=== PATIENT | female | born 1995 | race Caucasian/White ===

== ENCOUNTER 2022-10-06 19:03 | Emergency (ER) | payer OTHER, SELFPAY ==
[2022-10-06 19:04] VITALS: BP 129/70; PULSE 96; RESP 20; TEMP 36.7; O2SAT 98
--- NOTE | 2022-10-06 19:07 | ED.ABDPAIN ---
HPI - Abdominal Pain General Chief Complaint: Abdominal Pain Stated Complaint: nausea Source: patient Mode of arrival: ambulatory History of Present Illness HPI narrative: 27-year-old female, , LMP 1 week ago presents to the ER with 15 hour history of -- epigastric pain. The pain is continuous. No exacerbating or relieving factors. -- Nausea with multiple episodes of vomiting. She is unable to keep anything down. -- Diarrhea with multiple loose stools. No blood or mucus. -- Fever with a T-max of 100.1?. No prior episodes of abdominal pain. No prior abdominal surgeries. MD elicited complaint: abdominal pain Onset (ago): hour(s) ( Started 15 hours ago.) Pain Consistency: constant Location: epigastric Severity: mild Quality: aching Radiation: none Migration to: no migration Exacerbating factors: nothing Relieving factors: nothing Associated symptoms: denies other symptoms Related Data Allergies Allergy/AdvReac Type Severity Reaction Status Date / Time No Known Allergies Allergy Verified 10/06/22 19:39 Review of Systems Review of Systems: All systems reviewed & are unremarkable except as noted in HPI and below Constitutional: Constitutional: Reports as per HPI and Reports no additional constitutional complaints Eyes: Eyes: Reports as per HPI and Reports no additional eye complaints ENT: Reports system reviewed and no additional complaints, except as documented and Reports as per HPI Cardiovascular: Cardiovascular: Reports as per HPI and Reports no additional cardiovascular complaints Respiratory: Respiratory: Reports as per HPI and Reports no additional respiratory complaints Gastrointestinal: Gastrointestinal: Reports as per HPI, Reports no additional gastrointestinal complaints, Reports abdominal pain, Reports diarrhea, Reports nausea and Reports vomiting Genitourinary: Genitourinary: Reports no additional female genitourinary complaints Musculoskeletal: Musculoskeletal: Reports no additional musculoskeletal complaints and Reports as per HPI Integumentary/Breasts: Skin/Breast: Reports system reviewed and no additional complaints, except as docu and Reports as per HPI Neurologic: Reports system reviewed and no additional complaints, except as documented and Reports as per HPI Psychiatric: Psychiatric: Reports no additional psychiatric complaints and Reports as per HPI Endocrine: Endocrine: Reports no additional endocrine complaints and Reports as per HPI Hematologic/Lymphatic: Hematologic/Lymphatic: Reports no additional hematologic/lymphatic complaints and Reports as per HPI Allergic/Immunologic: Allergic/Immunologic: Reports no additional allergic/immunologic complaints and Reports as per HPI Exam Const: General: healthy appearing and no acute distress Nutritional Appearance: well nourished Orientation/consciousness: patient oriented x3 Limitations: no limitations HENMT: Head: normal to inspection Ears: external ears normal Face/Nose/Sinus: Normal external nose present Face and sinus: normal facial exam Mouth: Yes Normal oral and palatal mucosa present Throat: posterior oropharynx normal Eyes: Conjunctivae: conjunctivae normal Pupils: Equal, round and reactive pupils present EOM: EOMs intact bilaterally Direct Ophthalmoscopy: no photophobia Neck: Neck: normal visual inspection, no lymphadenopathy and no meningeal signs Chest: Chest palpation & inspection: normal inspection of the chest Resp: Effort & Inspection: normal respiratory effort Auscultation: clear to auscultation bilaterally Cardio: Rate: regular rate Rhythm: regular rhythm GI: GI Palp: Yes Soft to palpation Auscultation: normal bowel sounds : General: Yes no CVA tenderness Back/Spine/Pelvis: Back: no CVA tenderness Skin: General skin exam: normal color Rashes: no rashes Wounds: no wounds Neuro: General: patient oriented x3, moves all extremities, no meningeal signs, no focal motor deficits and CN's II-XI intac
[2022-10-06 19:27] LABS: Basophils Absolute Auto 0.01 K/mm3 (0.00-0.10); Basophils Percent Auto 0.1 % (0.0-1.0); Eosinophils Absolute Auto 0.01 K/mm3 (0.02-0.50); Eosinophils Percent Auto 0.1 % (1.0-6.0); Hematocrit 39.2 % (35.0-49.0); Hemoglobin 13.3 g/dL (12.0-15.0); Immature Granulocyte Absolute 0.03 K/mm3 (0.00-0.00); Immature Granulocyte Percent A 0.3 % (0.0-0.0); Lymphocytes Absolute Auto 0.74 K/mm3 (1.10-4.50); Lymphocytes Percent Auto 7.1 % (18.0-42.0); Mean Corpuscular HGB Conc 33.9 g/dL (32.0-36.0); Mean Corpuscular Volume 85.6 fL (78.0-102.0); Mean Platelet Volume 8.7 fl (9.2-11.8); Monocytes Absolute Auto 0.27 K/mm3 (0.10-0.90); Monocytes Percent Auto 2.6 % (2.0-11.0); Neutrophils Absolute Auto 9.3 K/mm3 (1.7-7.2); Neutrophils Percent Auto 89.8 % (50.0-70.0); Platelet Count Result 263 K/mm3 (150-420); Red Blood Count 4.58 M/mm3 (4.20-5.40); Red Cell Distribution Width 14.1 % (11.6-14.4); White Blood Count 10.4 K/mm3 (4.8-10.8)
[2022-10-06 19:33] LABS: Appearance Urine Slightly Cloudy (Clear); Bilirubin Urine 1+ (Negative); Blood Urine 3+ (Negative); Glucose Urine UA Negative (Negative); Ketones Urine Negative (Negative); Leukocyte Esterase Ur Trace LEU/UL (Negative); Nitrate Urine Negative (Negative); Protein Urine 2+ (Negative); Specific Grav Ur >= 1.030 (1.010-1.020); Urobilinogen Urine 0.2 mg/dL (0.2-1.0)
[2022-10-06] MEDS: ONDANSETRON INJ 4 MG/2 ML VIAL IV PUSH (19:35)
[2022-10-06] MEDS: LACTATED RINGERS 1,000 ML 999 ML IV CONT (19:35)
[2022-10-06 19:41] LABS: Partial Thromboplastin Time 26.7 SEC (23.90-30.70)
[2022-10-06 19:42] LABS: Add Urine Microscopic? YES; Bacteria Urine Trace /hpf; Color Urine Dark Yellow (Yellow); Mucus Urine Rare /lpf; Squamous Epithelial Cell Urine Few /hpf (Few); WBC Urine 0-3 /hpf (0-3)
[2022-10-06 19:47] LABS: Alanine Aminotransferase 12 U/L (14-59); Albumin Level 3.7 g/dL (3.4-5.0); Alkaline Phosphatase 72 U/L (46-116); Anion Gap 11 mmol/L (8-16); Aspartate Amino Transferase < 10 U/L (15-37); Bilirubin,Total 0.6 mg/dL (0.00-1.00); Blood Urea Nitrogen 11 mg/dL (7-18); Calcium 8.2 mg/dL (8.5-10.1); Carbon Dioxide 25 mmol/L (21-32); Chloride 100 mmol/L (98-108); Estimated CRCL calculation 104 ml/min; Estimated Glomerular Filt Rate > 60; Glucose 135 mg/dL (70-99); Osmolality Calculated 283 mOsm/kg (285-295); Potassium 3.4 mmol/L (3.5-5.1); Sodium 136 mmol/L (136-145); Total Protein 8.2 g/dL (6.4-8.2)
[2022-10-06 19:50] LABS: Pregnancy On Board Control Positive; Urine Pregnancy Test Negative
[2022-10-06 19:50] LABS: Lipase 19 U/L (16-77)
[2022-10-06 19:52] LABS: Lactic Acid Reflex 1.2 mmol/L (0.4-2.0)
[2022-10-06 20:05] LABS: Influenza A QL RT-PCR Negative (Negative); Influenza B QL RT-PCR Negative (Negative); RSV RNA, RT-PCR Negative (Negative); SARS-CoV-2 RNA PCR Negative (Negative)
[2022-10-06] MEDS: ONDANSETRON HCL ODT 4 MG TABLET PO (20:17)
[2022-10-06] MEDS: PANTOPRAZOLE SODIUM IV 40 MG VIAL IV PUSH (20:17)
[2022-10-06 20:28] VITALS: BP 105/68; PULSE 90; RESP 16; TEMP 37.2; O2SAT 100
== END 2022-10-06 20:33 | disposition home or self-care (01) ==
PROVIDERS: Emergency Provider Internal Medicine Critical Care Medicine
DX: K52.9 Noninfective gastroenteritis and colitis, unspecified (principal); E86.0 Dehydration; Z20.822 Contact with and (suspected) exposure to COVID-19
CPT/HCPCS: 36415; 80053; 81001; 81025; 83605; 83690; 85025; 85730; 87637; 96361; 96374; 96375; 99284; A9270; C9113; J2405; J7120

== ENCOUNTER 2024-08-18 11:39 | Emergency (ER) | payer OTHER, SELFPAY ==
--- OUTSIDE RECORDS SUMMARY | 2024-08-18 11:42 | XMS_ITS | Clinical Summary ---
Author Organization [facility] at the [facility] [place] [facility] Address [address] [place] [address] Care Team Providers Care Side Hemmer Name Role Phone No, Physician Primary Care Provider Allergies No known active allergies Medications [id number] -epa-fish oil 400 mcg-35 mg -25 mg-5 mg tablet,chewable Take by mouth Active ibuprofen (ADVIL,MOTRIN) 600 mg tabletIndication s:Cramps Take 1 tablet (600 mg total) by mouth every 6 (six) hours as needed for pain 30 tablet 1 11/05/2021 Active Active Problems Problem Noted Date Diagnosed Date Normal course 11/05/2021 Overview (11/05/2021): 11/04/2021, PPD 1 (kg): S/p TSVD at 40w1d after IOL PNL: B-/I/-/-,NR VSS EBL 300mL. Hgb 9.9 on admission > 9.2 PPD#1, No signs/symptoms of acute blood loss anemia. Tolerating PO. Voiding spontaneously. Pain: Controlled with PO pain medications Fundus firm Breast Feeding Baby Doing well in room with mom Disposition: Continue routine care 11/05/2021, PPD 2 (SK): Rh negative, baby Rh positive - status post RhoGAM yesterday Ambulating, voiding, tolerating regular diet, pain controlled Formula feeding VSS WNL Normal exam Stable for discharge Routine discharge precautions Discharge home with ibuprofen for pain Tobacco abuse 05/05/2021 Marijuana use 05/05/2021 Low grade squamous intraepit h lesion on cytologic smear cervix (lgsil) 05/05/2021 Resolved Problems Problem Noted Date Diagnosed Date Resolved Date Encounter for elective induction of labor 11/03/2021 11/05/2021 Overview (11/05/2021): 11/03/2021 (BD): Estephanie is a 26 y.o. female at 40w0d presenting for elective induction of labor. - Labor: favorable cervix started on pitocin overnight (current rate - 2); AROM @ 07:30 - clear fluid; cervix unchanged [2]- continue to titrate pitocin - GBS: neg - Pain Control: per maternal request, narcotics ok if delivery not anticipated within 4hrs - FWB: presentation confirmation by bedside US; Tracing - continuous EFM; EFW: 7.5# - Labs: CBC, T&S - Diet: CLD, as tolerated - Fluids: place IV, LR maintenance hydration Supervision of normal first , antepartum 05/05/2021 11/05/2021 Overview (11/05/2021): EDC by 14 week ultrasound Labs: B-/I/-/-, Hep C neg - RhoGAM 08/17/2021 GCT: 154 - 3hr passed TDAP: 08/17/2021 GBS: negative Marijuana and tobacco use. Pt is working on quitting UDS: remains positive THC Panorama: low risk Immunizations Immunization Administration Dates Next Due MMR 11/05/2021(Deferred: Contraindic ation) Tdap 08/17/2021 Surgical History Surgery Date Site/Laterality Comments ARM SURGERY Left at age 4 TONSILECTOMY, ADENOIDECTOMY, BILATERAL MYRINGOTOMY AND TUBES as a teenager age 15 Medical History Medical History Date Comments Abnormal Pap smear of cervix Family History Medical History Relation Name Comments Breast cancer Maternal Grandmother Breast cancer Mother's Sister Ovarian cancer Neg Hx Uterine cancer Neg Hx Relation Name Status Comments Father Alive Maternal Grandfather Other at age 40's Maternal Grandmother Mother Alive Mother's Sister Other at age 50's Social History Tobacco Use Types Packs/Day Years Used Date Smoking Tobacco: Every Day Cigarettes Smokeless Tobacco: Never Tobacco Cessation:Ready to Q uit: Yes; Counseling Given: Yes AUDIT-C Answer Date Recorded Q1: How often do you have a drink containing alcohol? Never 11/03/2021 Q2: How many drinks containi ng alcohol do you have on a typical day when you are drinking? Patient does not drink Q3: How often do you have si x or more drinks on one occasion? Never 11/03/2021 [place] Depression Scale Answer Date Recorded [place] Depression Scale Total 3 11/04/2021 The thought of harming myself has occurred to me . Never 11/04/2021 Personal Safety Answer Date Recorded Getting School Help Needed Not on file 06/08 Comments No Sex and Gender Information Value Date Recorded Sex Assigned at Not on file Legal Sex Female 8:09 PM MANUFACTURING FINANCE MANAGER Gender Identity Not on file Sexual Orientation Not on file Obstetrics History Para Term AB IAB SAB Ectopic Multiple Livin g Live Births 1 Date Outcome GA Total Labor Labor/2nd/3rd Weight Sex Type Anes PTL Keke A1 A5 Name Clin Last Filed Vital Signs Vital Sign Reading Time Taken Comments Blood Pressure 115/62 11/05/2021 5:35 AM CDT Pulse 65 11/05/2021 5:35 AM CDT Temperature 36.7 C (98.1 F) 11/05/2021 5:35 AM CDT Respiratory Rate 16 11/05/2021 5:35 AM CDT Oxygen Saturation 98% 11/05/2021 5:35 AM CDT Inhaled Oxygen Concentration - - Weight 79.8 kg (176 lb) 11/03/2021 1:05 AM CDT Height 160 cm (5' 3 ) 11/03/2021 1:05 AM CDT Body Mass Index 31.18 11/03/2021 1:05 AM CDT Plan of Treatment Health Maintenance Due Date Last Done Comments Cervical Cancer Screening 1995 Varicella Vaccines (2 of 2 - 2-dose childhood series) 1999 06/13/1996 Pneumococcal vaccine <65 (1 of 2 - PCV) 2014 Regular Well Visit/Exam 18-64 04/07/2022 04/07/2021 Depression Screening 11/04/2022 11/04/2021 Covid-19 Vaccine (3 season) 2024 11/21/2020, 10/24/2020 Influenza Vaccine (#1) 2024 05/05/2019 DTaP/Tdap/Td Vaccine (7 - Td or Tdap) 08/18/2031 08/17/2021, 12/28/1999, 09/07/1996, Additional history exists Hepatitis B Screening Completed 1995 , 1995, 1995 Hepatitis C Screening Completed 05/05/2021 HPV Vaccines Aged Out No longer eligi ble based on patient's age to complete this topic Procedures Procedure Name Priority Date/Time Associated Diagnosis Comments HEPATITIS C ANTIBODY Routine 05/05/2021 10:19 AM MANUFACTURING FINANCE MANAGER Positive test Missed menses from Last 3 Months or Most Recently Relevant to Health Maintenance Results * Hepatitis C antibody (05/05/2021 10:19 AM MANUFACTURING FINANCE MANAGER) Hep C Ab Nonreactive Nonreactive KEILA SIBLEY Comment: Interpretive Data Nonreactive: Antibodies to HCV not detected. Does NOT exclude the possibility of recent exposure to HCV. Equivocal: Equivocal for HCV antibodies. Supplemental molecular testing will be automatically performed to determine infection status in accordance with current CDC screening recommendations. Reactive: Positive for HCV antibodies. This may represent current or past HCV infection. Supplemental molecular testing will be automatically performed to determine current infection status in accordance with current CDC screening recommendations. Interpretive data was last revised on 2019. Blood 05/05/2021 10:1 9 AM MANUFACTURING FINANCE MANAGER 05/05/2021 12:50 PM MANUFACTURING FINANCE MANAGER Jasmina Salcedo [facility] MICROBIOLOGY - GENE RAL ORDERABLES Final Result KEILA SIBLEY [address] [facility] Department [place] [address] from Last 3 Months or Most Recently Relevant to Health Maintenance Insurance [employer]CIAL [employer] COMMERCIAL [employer]IC Advance Directives For more information, please contact: [phone] * Full Code (Latest Code Status on File) Date Activated Date Inactivated Comments 11/03/2021 4:45 PM 11/05/2021 5:31 PM * Full Code Date Activated Date Inactivated Comments 11/03/2021 1:14 AM 11/03/2021 4:45 PM Full CPR in case of cardiopulmonary arrest Care Teams Side Hemmer Relationship Specialty Start Date End Date No, Physician PCP - General 04/07/21
--- OUTSIDE RECORDS SUMMARY | 2024-08-18 11:42 | XMS_ITS | Clinical Summary ---
Author Organization [facility] Address [address] [place] [address] Phone Care Team Providers Care Quality Improvement Analyst Name Role Phone Unavailable Primary Care Provider Unavailabl e Encounters Date Type Department Care Team Description 08/11/2024 External Device Data STL ABSTRACTION Provider, Abstract 08/10/2024 External Device Data STL ABSTRACTION Provider, Abstract 08/07/2024 External Device Data STL ABSTRACTION Provider, Abstract 07/24/2024 External Device Data STL ABSTRACTION Provider, Abstract 07/10/2024 External Device Data STL ABSTRACTION Provider, Abstract 07/10/2024 External Device Data STL ABSTRACTION Provider, Abstract 07/10/2024 External Device Data STL ABSTRACTION Provider, Abstract 07/09/2024 10:42 AM DATA CONVERSION ANALYST - 07/09/2024 11:59 PM DATA CONVERSION ANALYST Hospital Encounter [facility] [address] [place] [address] [place] NP Discharge Disposition: Home or Self Care from Last 3 Months Social History Tobacco Use Types Packs/Day Years Used Date Smoking Tobacco: Never Assessed Comments Unknown Sex and Gender Information Value Date Recorded Sex Assigned at Not on file Legal Sex Female 1:22 PM CDT Gender Identity Not on file Sexual Orientation Not on file Plan of Treatment Health Maintenance Due Date Last Done Comments HEPATITIS B VACCINES (1 of 3 - 19+ 3-dose series) 2014 CERVICAL CANCER SCREENING 2016 DTAP/TDAP/TD VACCINES (3 - Td or Tdap) 08/18/2031 08/17/2021, 06/06/2021 INFLUENZA VACCINE Completed 04/06/2024 HPV VACCINES Aged Out No longer eligi ble based on patient's age to complete this topic Procedures Procedure Name Priority Date/Time Associated Diagnosis Comments US HEAD NECK TISSUES Routine 07/09/2024 11:14 AM DATA CONVERSION ANALYST Neck mass from Last 3 Months Results * US HEAD NECK TISSUES (07/09/2024 11:14 AM DATA CONVERSION ANALYST) Anatomical Region Laterality Modality Head Ultrasound 07/09/2024 11:1 4 AM DATA CONVERSION ANALYST Impressions 07/09/2024 1:22 PM DATA CONVERSION ANALYST IMPRESSION: 1. Marked enlargement and heterogeneity of the thyroid gland, consistent with goiter. 2.TR3 (mildly suspicious) nodule in the right thyroid. Recommendation: Follow up ultrasound in one year. 3. Hypoechoic nodule inferior to the right thyroid, potentially representing parathyroid adenoma. Correlate clinically. Attention on follow-up. Standard Recommendations: TR1: no FNA required. TR2: no FNA required. TR3: >=1.5 cm follow up at 1, 3 and 5 years. >=2.5 cm FNA. TR4: >=1.0 cm follow up at 1, 2, 3 and 5 years. >=1.5 cm FNA. TR5: >=0.5 cm annual follow up for up to 5 years. >=1.0 cm FNA. DICTATION LOCATION: [address] 07/09/2024 1:22 PM DATA CONVERSION ANALYST EXAMINATION: Thyroid Ultrasound. HISTORY: Neck mass. COMPARISON: None. FINDINGS: The thyroid is markedly enlarged in size. The right thyroid measures 8.8 x 3.0 x 3.2 cm and the left thyroid is 7.0 x 2.6 x 2.4 cm. The isthmus measures 1.1 cm. The thyroid parenchyma is markedly heterogeneous. There appears to be a hypoechoic mass along the inferior aspect of the right thyroid measuring 9 x 7 x 13 mm. No definite pulmonary vasculature is identified. The following nodules are reported by TI-RADS criteria. Nodule: One. Location: Right mid. Size: 1.2 x 0.9 x 1.0 cm. Composition: solid or almost completely solid (2) Echogenicity: hyperechoic (1) Shape: [id number] (0) Margin: smooth (0) Echogenic Foci: none or large comet-tail artifacts (0) TI-RADS category: TR3 (mildly suspicious) Recommendation: Follow up ultrasound in one year Procedure Note Aliyah Castillo MD - 07/09/2024 EXAMINATION: Thyroid Ultrasound. HISTORY: Neck mass. COMPARISON: None. FINDINGS: The thyroid is markedly enlarged in size. The right thyroid measures 8.8 x 3.0 x 3.2 cm and the left thyroid is 7.0 x 2.6 x 2.4 cm. The isthmus measures 1.1 cm. The thyroid parenchyma is markedly heterogeneous. There appears to be a hypoechoic mass along the inferior aspect of the right thyroid measuring 9 x 7 x 13 mm. No definite pulmonary vasculature is identified. The following nodules are reported by TI-RADS criteria. Nodule: One. Location: Right mid. Size: 1.2 x 0.9 x 1.0 cm. Composition: solid or almost completely solid (2) Echogenicity: hyperechoic (1) Shape: [id number] (0) Margin: smooth (0) Echogenic Foci: none or large comet-tail artifacts (0) TI-RADS category: TR3 (mildly suspicious) Recommendation: Follow up ultrasound in one year IMPRESSION: 1. Marked enlargement and heterogeneity of the thyroid gland, consistent with goiter. 2.TR3 (mildly suspicious) nodule in the right thyroid. Recommendation: Follow up ultrasound in one year. 3. Hypoechoic nodule inferior to the right thyroid, potentially representing parathyroid adenoma. Correlate clinically. Attention on follow-up. Standard Recommendations: TR1: no FNA required. TR2: no FNA required. TR3: >=1.5 cm follow up at 1, 3 and 5 years. >=2.5 cm FNA. TR4: >=1.0 cm follow up at 1, 2, 3 and 5 years. >=1.5 cm FNA. TR5: >=0.5 cm annual follow up for up to 5 years. >=1.0 cm FNA. DICTATION LOCATION: [address] us [place] NP US ORDERABLES Final R esult from Last 3 Months Insurance [facility] [employer]
--- OUTSIDE RECORDS SUMMARY | 2024-08-18 11:42 | XMS_ITS | Referral Summary ---
Author Organization [facility] at the [facility] Address [address] [place] [address] Care Team Providers Care Motor Vehicle Escort Driver Name Role Phone No, Physician Primary Care Provider [phone] Allergies No known active allergies Medications [id number] -epa-fish oil 400 mcg-35 mg -25 mg-5 [...] @ 07:30 - clear fluid; cervix unchanged [/2]- continue to titrate pitocin - GBS: neg [...] Due MMR 11/05/2021(Deferred: Contraindic ation) Tdap 08/17/2021 Social History Tobacco Use Types Packs/Day Years [...] more drinks on one occasion? Never 11/03/2021 [place] Depression Scale Answer Date Recorded [place] Depression Scale Total 3 11/04/2021 The thought of harming myself has occurred to me . Never 11/04/2021 Personal Safety Answer Date Recorded Getting School Help Needed Not on file 06/08 Comments No Sex and Gender Information Value Date Recorded Sex Assigned at Not on file Legal Sex Female 8:09 PM PRECINCT CAPTAIN Gender Identity Not on file Sexual Orientation Not on file Last Filed Vital Signs Vital Sign Reading [...] 11/03/2021 1:05 AM CDT Plan of Treatment Not on file Procedures Procedure Name Priority Date/Time Associated Diagnosis Comments HEPATITIS C ANTIBODY Routine 05/05/2021 10:19 AM PRECINCT CAPTAIN Positive test Missed menses from Last 3 Months or Most Recently Relevant to Health Maintenance Results * Hepatitis C antibody (05/05/2021 10:19 AM PRECINCT CAPTAIN) Hep C Ab Nonreactive Nonreactive KEILA SIBLEY [...] on 2019. Blood 05/05/2021 10:1 9 AM PRECINCT CAPTAIN 05/05/2021 12:50 PM PRECINCT CAPTAIN Jasmina Matias CNM LAB MICROBIOLOGY - GENE RAL ORDERABLES Final Result KELIA [facility] [address] [facility] Department [place] [address] from Last 3 Months or Most Recently Relevant to Health Maintenance Insurance [employer] COMMERCIAL [employer]IC Advance Directives For more information, please contact: [phone] * Full Code (Latest Code Status on File) Date Activated Date Inactivated Comments 11/03/2021 4:45 PM 11/05/2021 5:31 PM * Full Code Date Activated Date Inactivated Comments 11/03/2021 1:14 AM 11/03/2021 4:45 PM Full CPR in case of cardiopulmonary arrest Care Teams Motor Vehicle Escort Driver Relationship Specialty Start Date End Date No, Physician PCP - General 04/07/21
--- OUTSIDE RECORDS SUMMARY | 2024-08-18 11:46 | XMS_ITS | Data Portability ---
Author Organization [facility] ELANALisa Mai Address [address] [place] [address] Care Team Providers Care Drive In Waiter/Waitress Name Role Phone SAVANNAH OLIVARES Primary Care Provider Unavailabl e Assessment No assessment recorded. Plan of Treatment Reminders Order Date Submit Date Provider Last Modified By Organization Details Last Modified Time Details Appointments None recorded. Lab thyroperox idase Ab, serum 2024 025 [facility], [address] [place] [address], [facility] [address], [place], [address], 5 14:12:27 TSH + free T4, serum 2024 025 [facility], [address] [place] [address], [facility] [address], [place], [address], 5 14:12:25 TSH + free T4, serum 2023 024 aleisha [facility], [address] [place] [address], [facility] [address], [place], [address], 4 15:21:19 lipid panel, serum 2023 024 [facility]ITE [facility], [address] [place] [address], [facility] [address], [place], [address], 4 08:26:38 CBC w/ auto diff 2023 024 [facility], [address] [place] [address], [facility] [address], [place], [address], 4 08:26:46 TSH, ultra-sens itive, serum 2023 024 [facility], [address], [address], [place], [address], 4 08:26:41 HbA1c (hemoglobi n A1c), blood 2023 024 [facility], [address], [place], [address], 4 08:26:43 BMP, serum or plasma 2023 024 [facility], [address], [place], [address], 4 08:26:39 urinalysis , complete 2023 024 [facility], [address], [place], [address], 4 08:26:44 Referral None recorded. Procedures None recorded. Surgeries None recorded. Imaging US, thyroid 2024 025 [facility], [address], [place], [address], 5 15:29:56 US, hand - R proximal joint middle finger mass for 6 monthsprog ressively getting biggerpain ful at times with pressure 2023 024 [facility], [address], [place], [address], 5 11:20:15 Medication Orders metronidaz ole 0.75 % topical gel [address] [facility] [id number], [address], [place], [id number], 5 12:19:27 levothyrox ine 50 mcg tablet 2024 025 [facility] #11829, [address], [place], [place], [id number], 5 12:19:35 levothyrox ine 25 mcg tablet 2023 024 [facility] #[id number], [address], [place], [place], [id number], 4 11:09:42 metronidaz ole 0.75 % topical gel 2023 025 parris [facility] #[id number], [address], [place], [place], [id number], 5 12:13:50 Patient TargetsNo targets recorded. Patient Instructions Encounter Date Encounter Id Patient Instructions Last Modified By Organization Details Last Modified Time 04/06/2024 [id number] influenza (flu) vaccine: care instructions parris Not available 04/06/2024 11:56:45 dentist every 6 months surgical consultant every 2 years need for daily exercise, diet management drink water auto relaxation -Always present to ER or Urgent Care with any progRession of/alarming symptoms, significant changes in symptoms that are concerning or urgent matters -Pt educated re heart health TLCs: Eat a variety of foods every day. Good choices include fruits, vegetables, whole grains (like oatmeal), dried beans and peas, nuts and seeds, soy products (like tofu), and fat-free or low-fat dairy products. Replace butter, margarine, and hydrogenated or partially hydrogenated oils with olive and canola oils. (Canola oil margarine without trans fat is fine.) Replace red meat with fish, poultry, and soy protein (like tofu). Limit processed and packaged foods like chips, crackers, and cookies. Bake, broil, or steam foods. Don't nolan them. Be physically active. Get at least 30 minutes of exercise on most days of the week. [email or web address] Not available 04/06/2024 12:09:41 04/25/2024 [id number] hypothyroidism: care instructions [email or web address] Not available 04/25/2024 11:09:36 You have hypothyroidism, which means that your body is not making enough thyroid hormone. This hormone helps your body use energy. If your thyroid level is low, you may feel tired, be constipated, have an increase in your blood pressure, or have dry skin or memory problems. You may also get cold easily, even when it is warm. Women with low thyroid levels may have heavy menstrual periods. A blood test to find your thyroid-stimulating hormone (TSH) level is used to check for hypothyroidism. A high TSH level may mean that you have low thyroid. When your body is not making enough thyroid hormone, TSH levels rise in an effort to make the body produce more. The treatment for hypothyroidism is to take thyroid hormone pills. You should start to feel better in 1 to 2 weeks. But it can take several months to see changes in the TSH level. You will need regular visits with your doctor to make sure you have the right dose of medicine. Most people need treatment for the rest of their lives. You will need to see your doctor regularly to have blood tests and to make sure you are doing well. Follow-up care is a lipscomb part of your treatment and safety. Be sure to make and go to all appointments, and call your doctor if you are having problems. It's also a good idea to know your test results and keep a list of the medicines you take. [email or web address] Not available 04/25/2024 11:10:11 06/21/2024 [id number] hypothyroidism: care instructions [email or web address] Not available 06/21/2024 12:19:28 test results [email or web address] Not available 12:19:26 Reason for Referral None Reported. Results Created Date Observation Date Name Description Value Unit Range Abnormal Flag Note LastModifiedBy Organization Detail LastModifiedTime 04/06/2004/07/2024 LIPID PANEL cholesterol, total 151 mg/dL 100-19 9 Not Available [facility] ([facility]) [address], [place], [address], 04/07/2024 08:26:38 04/06/20 24 04/07/2024 LIPID PANEL triglyceride s 91 mg/dL 0-149 Not Available [facility] ([facility]) [address] [place], [address], 04/07/2024 08:26:38 04/06/20 24 04/07/2024 LIPID PANEL HDL cholesterol 41 mg/dL >39 Not Available [facility] ([facility]) [address] [place], [address], 04/07/2024 08:26:38 04/06/20 24 04/07/2024 LIPID PANEL VLDL cholesterol jef 17 mg/dL 5-40 Not Available [facility] ([facility]) [address] [place], [address], 04/07/2024 08:26:38 04/06/20 24 04/07/2024 LIPID PANEL LDL chol calc ([facility]) 93 mg/dL 0-99 Not Available [facility] ([facility]) [address] [place], [address], 04/07/2024 08:26:38 04/06/20 24 04/07/2024 BASIC METAB OLIC PANEL (8) glucose 94 mg/dL 70-99 Not Available [facility] ([facility]) [address] [place], [address], 04/07/2024 08:26:39 04/06/20 24 04/07/2024 BASIC METAB OLIC PANEL (8) BUN 9 mg/dL 6-20 Not Available [facility] ([facility]) [address] [place], [address], 04/07/2024 08:26:39 04/06/20 24 04/07/2024 BASIC METAB OLIC PANEL (8) creatinine 0.77 mg/dL 0.57-1 .00 Not Available [facility] ([facility]) [address] [place], [address], 04/07/2024 08:26:39 04/06/20 24 04/07/2024 BASIC METAB OLIC PANEL (8) eGFR 108 mL/mi n/1.7 3 >59 Not Available [facility] ([facility]) [address], [place], [address], 04/07/2024 08:26:39 04/06/20 24 04/07/2024 BASIC METAB OLIC PANEL (8) BUN/creatini ne ratio 12 9-23 Not Available [facility] ([facility]) [address], [place], [address], 04/07/2024 08:26:39 04/06/20 24 04/07/2024 BASIC METAB OLIC PANEL (8) sodium 141 mmol/ L 134-14 4 Not Available [facility] ([facility]) [address] [place], [address], 04/07/2024 08:26:39 04/06/20 24 04/07/2024 BASIC METAB OLIC PANEL (8) potassium 4.4 mmol/ L 3.5-5. 2 Not Available [facility] ([facility]) [address] [place], [address], 04/07/2024 08:26:39 04/06/20 24 04/07/2024 BASIC METAB OLIC PANEL (8) chloride 103 mmol/ L 96-106 Not Available [facility] ([facility]) [address] [place], [address], 04/07/2024 08:26:39 04/06/20 24 04/07/2024 BASIC METAB OLIC PANEL (8) carbon dioxide, total 25 mmol/ L 20-29 Not Available [facility] ([facility]) [address] [place], [address], 04/07/2024 08:26:39 04/06/20 24 04/07/2024 BASIC METAB OLIC PANEL (8) calcium 9.6 mg/dL 8.7-10 .2 Not Available [facility] ([facility]) [address], [place], [address], 04/07/2024 08:26:39 04/06/20 24 04/07/2024 MICRO SCOPI C EXAMI NATIO N WBC None seen /hpf 0-5 Not Available [facility] ([facility]) [address], [place], [address], 04/07/2024 08:26:41 04/06/20 24 04/07/2024 MICRO SCOPI C EXAMI NATIO N RBC 11-30 /hpf 0-2 abnormal Not Available [facility] ([facility]) [address], [place], [address], 04/07/2024 08:26:41 04/06/20 24 04/07/2024 MICRO SCOPI C EXAMI NATIO N epithelial cells (non renal) 0-10 /hpf 0-10 Not Available [facility] ([facility]) [address], [place], [address], 04/07/2024 08:26:41 04/06/20 24 04/07/2024 MICRO SCOPI C EXAMI NATIO N casts None seen /lpf nonese en Not Available [facility] ([facility]) [address], [place], [address], 04/07/2024 08:26:41 04/06/20 24 04/07/2024 MICRO SCOPI C EXAMI NATIO N bacteria None seen nonese en/few Not Available [facility] ([facility]) [address], [place], [address], 04/07/2024 08:26:41 04/06/20 24 04/07/2024 TSH RFX ON ABNOR MAL TO FREE T4 TSH 14.600 uIU/m L 0.450- 4.500 above high normal Not Available [facility] ([facility]) [address], [place], [address], 04/07/2024 08:26:41 04/06/2004/07/2024 HEMOG LOBIN A1C hemoglobin A1C 5.7 % 4.8-5. 6 above high normal Predi abete s: 5.7 - 6.4 Diabe jake: >6.4 Glyce lazaro contr ol for adult s with diabe jake: <7.0 Not Available [facility] ([facility]) [address] [place], [address], 04/07/2024 08:26:42 04/06/20 24 04/07/2024 T4F T4,free (direct) 0.88 NG/dL 0.82-1 .77 Not Available [facility] ([facility]) [address] [place], [address], 04/07/2024 08:26:44 04/06/20 24 04/07/2024 URINA LYSIS , COMPL ETE specific gravity 1.011 1.005- 1.030 Not Available [facility] ([facility]) [address] [place], [address], 04/07/2024 08:26:44 04/06/20 24 04/07/2024 URINA LYSIS , COMPL ETE pH 8.0 5.0-7. 5 above high normal Not Available [facility] ([facility]) [address] [place], [address], 04/07/2024 08:26:44 04/06/2004/07/2024 URINA LYSIS , COMPL ETE urine-color YELLOW yellow Not Available [facility] ([facility]) [address] [place], [address], 04/07/2024 08:26:44 04/06/2004/07/2024 URINA LYSIS , COMPL ETE appearance CLEAR clear Not Available [facility] ([facility]) [address] [place], [address], 04/07/2024 08:26:44 04/06/20 24 04/07/2024 URINA LYSIS , COMPL ETE WBC esterase NEGATI VE negati ve Not Available [facility] ([facility]) [address], [place], [address], 04/07/2024 08:26:44 04/06/20 24 04/07/2024 URINA LYSIS , COMPL ETE protein NEGATI VE negati ve/tra ce Not Available [facility] ([facility]) [address] [place], [address], 04/07/2024 08:26:44 04/06/2004/07/2024 URINA LYSIS , COMPL ETE glucose NEGATI VE negati ve Not Available [facility] ([facility]) [address] [place], [address], 04/07/2024 08:26:44 04/06/20 24 04/07/2024 URINA LYSIS , COMPL ETE ketones NEGATI VE negati ve Not Available [facility] ([facility]) [address], [place], [address], 04/07/2024 08:26:44 04/06/20 24 04/07/2024 URINA LYSIS , COMPL ETE occult blood 2+ negati ve abnormal Not Available [facility] ([facility]) [address] [place], [address], 04/07/2024 08:26:44 04/06/20 24 04/07/2024 URINA LYSIS , COMPL ETE bilirubin NEGATI VE negati ve Not Available [facility] ([facility]) [address] [place], [address], 04/07/2024 08:26:44 04/06/20 24 04/07/2024 URINA LYSIS , COMPL ETE urobilinogen ,semi-qn 0.2 mg/dL 0.2-1. 0 Not Available [facility] ([facility]) [address], [place], [address], 04/07/2024 08:26:44 04/06/20 24 04/07/2024 URINA LYSIS , COMPL ETE nitrite, urine NEGATI VE negati ve Not Available [facility] ([facility]) [address], [place], [address], 04/07/2024 08:26:44 04/06/20 24 04/07/2024 URINA LYSIS , COMPL ETE microscopic examination SEE BELOW: Micro scopi c was indic ated and was perfo rmed. Not Available [facility] ([facility]) [address], [place], [address], 04/07/2024 08:26:44 04/06/20 24 04/07/2024 CBC WITH DIFFE RENTI AL/PL ATELE T WBC 7.3 x10e3 /uL 3.4-10 .8 Not Available [facility] ([facility]) [address], [place], [address], 04/07/2024 08:26:46 04/06/20 24 04/07/2024 CBC WITH DIFFE RENTI AL/PL ATELE T RBC 4.39 x10e6 /uL 3.77-5 .28 Not Available [facility] ([facility]) [address] [place], [address], 04/07/2024 08:26:46 04/06/20 24 04/07/2024 CBC WITH DIFFE RENTI AL/PL ATELE T hemoglobin 13.5 g/dL 11.1-1 5.9 Not Available [facility] ([facility]) [address] [place], [address], 04/07/2024 08:26:46 04/06/20 24 04/07/2024 CBC WITH DIFFE RENTI AL/PL ATELE T hematocrit 40.4 % 34.0-4 6.6 Not Available [facility] ([facility]) [address], [place], [address], 04/07/2024 08:26:46 04/06/20 24 04/07/2024 CBC WITH DIFFE RENTI AL/PL ATELE T MCV 92 fL 79-97 Not Available [facility] ([facility]) [address], [place], [address], 04/07/2024 08:26:46 04/06/20 24 04/07/2024 CBC WITH DIFFE RENTI AL/PL ATELE T MCH 30.8 pg 26.6-3 3.0 Not Available [facility] ([facility]) [address], [place], [address], 04/07/2024 08:26:46 04/06/20 24 04/07/2024 CBC WITH DIFFE RENTI AL/PL ATELE T MCHC 33.4 g/dL 31.5-3 5.7 Not Available [facility] ([facility]) [address], [place], [address], 04/07/2024 08:26:46 04/06/20 24 04/07/2024 CBC WITH DIFFE RENTI AL/PL ATELE T RDW 12.5 % 11.7-1 5.4 Not Available [facility] ([facility]) [address], [place], [address], 04/07/2024 08:26:46 04/06/20 24 04/07/2024 CBC WITH DIFFE RENTI AL/PL ATELE T platelets 288 x10e3 /uL 150-45 0 Not Available [facility] ([facility]) [address] [place], [address], 04/07/2024 08:26:46 04/06/20 24 04/07/2024 CBC WITH DIFFE RENTI AL/PL ATELE T neutrophils 56 % notest ab. Not Available [facility] ([facility]) [address] [place], [address], 04/07/2024 08:26:46 04/06/20 24 04/07/2024 CBC WITH DIFFE RENTI AL/PL ATELE T lymphs 35 % notest ab. Not Available [facility] ([facility]) [address] [place], [address], 04/07/2024 08:26:46 04/06/20 24 04/07/2024 CBC WITH DIFFE RENTI AL/PL ATELE T monocytes 6 % notest ab. Not Available [facility] ([facility]) [address] [place], [address], 04/07/2024 08:26:46 04/06/20 24 04/07/2024 CBC WITH DIFFE RENTI AL/PL ATELE T eos 2 % notest ab. Not Available [facility] ([facility]) [address] [place], [address], 04/07/2024 08:26:46 04/06/20 24 04/07/2024 CBC WITH DIFFE RENTI AL/PL ATELE T basos 1 % notest ab. Not Available [facility] ([facility]) [address] [place], [address], 04/07/2024 08:26:46 04/06/20 24 04/07/2024 CBC WITH DIFFE RENTI AL/PL ATELE T neutrophils (absolute) 4.1 x10e3 /uL 1.4-7. 0 Not Available [facility] ([facility]) [address] [place], [address], 04/07/2024 08:26:46 04/06/20 24 04/07/2024 CBC WITH DIFFE RENTI AL/PL ATELE T lymphs (absolute) 2.6 x10e3 /uL 0.7-3. 1 Not Available [facility] ([facility]) [address] [place], [address], 04/07/2024 08:26:46 04/06/20 24 04/07/2024 CBC WITH DIFFE RENTI AL/PL ATELE T monocytes(ab solute) 0.5 x10e3 /uL 0.1-0. 9 Not Available [facility] ([facility]) [address], [place], [address], 04/07/2024 08:26:46 04/06/20 24 04/07/2024 CBC WITH DIFFE RENTI AL/PL ATELE T eos (absolute) 0.1 x10e3 /uL 0.0-0. 4 Not Available [facility] ([facility]) [address] [place], [address], 04/07/2024 08:26:46 04/06/20 24 04/07/2024 CBC WITH DIFFE RENTI AL/PL ATELE T baso (absolute) 0.0 x10e3 /uL 0.0-0. 2 Not Available [facility] ([facility]) [address] [place], [address], 04/07/2024 08:26:46 04/06/20 24 04/07/2024 CBC WITH DIFFE RENTI AL/PL ATELE T immature granulocytes 0 % notest ab. Not Available [facility] ([facility]) [address] [place], [address], 04/07/2024 08:26:46 04/06/20 24 04/07/2024 CBC WITH DIFFE RENTI AL/PL ATELE T immature grans (abs) 0.0 x10e3 /uL 0.0-0. 1 Not Available [facility] ([facility]) [address] [place], [address], 04/07/2024 08:26:46 04/18/20 24 04/19/2024 TSH+F REE T4 TSH 13.000 uIU/m L 0.450- 4.500 above high normal Not Available [facility] ([facility]) [address] [place], [address], 04/19/2024 11:18:34 04/18/20 24 04/19/2024 TSH+F REE T4 T4,free(dire ct) 0.92 NG/dL 0.82-1 .77 Not Available [facility] ([facility]) [address] [place], [address], 04/19/2024 11:18:34 06/21/19 25 06/22/2024 TSH+F REE T4 TSH 6.870 uIU/m L 0.450- 4.500 above high normal Not Available [facility] ([facility]) [address] [place], [address], 06/22/2024 14:12:25 06/21/19 25 06/22/2024 TSH+F REE T4 T4,free(dire ct) 0.97 NG/dL 0.82-1 .77 Not Available [facility] ([facility]) [address] [place], [address], 06/22/2024 14:12:25 06/21/19 25 06/22/2024 THYRO ID ANTIB ODIES thyroid peroxidase (tpo) Ab 439 IU/mL 0-34 above high normal Not Available [facility] ([facility]) [address] [place], [address], 06/22/2024 14:12:26 06/21/19 25 06/22/2024 THYRO ID ANTIB ODIES thyroglobuli n antibody >2250. 0 IU/mL 0.0-0. 9 abnormal Thyro globu sandra Antib peter measu red by Neville Poon er Metho dolog y It shoul d be noted that the prese nce of thyro globu sandra antib odies may not be patho genic nor diagn ostic , espec ially at very low level s. The assay manuf actur er has found that four perce nt of indiv idual s witho ut evide nce of thyro id disea se or autoi mmuni ty will have posit salma TgAb level s up to 4 IU/mL . Not Available [facility] ([facility]) [address], [place], [address], 06/22/2024 14:12:26 07/09/19 25 07/09/2024 US, thyro id No observ ation record ed. [facility] [address], [place], [address], 07/12/2024 17:28:00 Result Notes None recorded. Problems Name Problem SNOMED Code Status Onset Date Resolution Date Notes Provider Name and Address Organization Details Recorded Time Body mass index 20-24 - normal 069931271 Active 2023 ANDREA RenteriaP-BC Attn: Accountin g,[address] [facility], [place], [address], [facility] 4 16:04:33 Lump on finger 958858048 Active 2023 CHUYITA Renteria-BC Attn: Accountin g,[address] [facility], [place], [address], [place] [facility] 4 12:20:51 Rosacea, papular type 10101267 Active 2023 CHUYITA Renteria-BC Attn: Accountin g,[address] [facility], [place], [address], [place] [facility] 4 16:04:33 Hypothyroidism 06222973 Active 2023 CHUYITA Renteria-BC Attn: Accountin g,[address] [facility], [place], [address], [place] [facility] 4 16:04:33 Prediabetes 483050720 Active 2023 ANDREA RenteriaP-BC Attn: Accountin g,[address] [facility], [place], [address], [place] [facility] 4 16:05:02 Neck swelling 792630903 Active 2024 Savannah Olivares, [employer]- Attn: Christiano patel,[address] [facility], [place], [address], [place] - [facility] 5 13:41:59 Problem Notes None recorded. Procedures Surgical History Date Name Laterality Status Provider Name and Address Organization Details Recorded Time 2 fitting of denture completed Araceli Silva MA [facility] 04/06/2024 11:26:05 Imaging Results Imaging Date Name Status LastModified by Organiz ation Details LastModified Time 07/09/2024 US, thyroid completed [facility] [address] [facility] [address], [place], [address], 07/12/2024 17:28:00 Procedure Notes None recorded. Medical Equipment None Reported. Allergies No known drug allergies Medications Name Sig Start Date Stop Date Status Note LastModified by Organization Details LastModified Time levothyroxi ne 25 mcg tablet Take 1 tablet every day by oral route. 2023 active Not Available Not Available Not Avai lable levothyroxi ne 50 mcg tablet TAKE 1 TABLET BY MOUTH EVERY DAY FOR HYPOTHYRO IDISM active Not Available Not Available No t Available triamcinolo ne acetonide 0.1 % topical ointment APPLY TOPICALLY TO THE AFFECTED AREA EVERY 12 HOURS SPARINGLY NEEDED 04/06 completed Not Available Not Available Not Available mupirocin calcium 2 % topical cream APPLY 1 APPLICATI ON TOPICALLY TWICE DAILY FOR 7 DAYS. WASH AFFECTED AREA TWICE DAILY AND APPLY OINTMENT SPARINGLY 04/06 completed Not Available Not Available Not Available metronidazo le 0.75 % topical gel APPLY A THIN LAYER TO THE AFFECTED AREA(S) BY TOPICAL ROUTE 2 TIMES PER DAY IN THE MORNING AND EVENING 2024 active Not Available Not Available Not Avai lable Vitals Date Recorded Body height Body mass index (BMI) Body weight Body temperature Heart rate Oxygen saturation Oxygen saturation in Arterial blood by Pulse oximetry Systolic blood pressure Diastolic blood pressure Provider Name and Address Organization Details Last Updated DateTime 4 161.29 cm 24.4 kg/m2 42440.5 3 g 98.3 [degF] 70 /min 99 % 99 % 100 mm[Hg] 64 mm[Hg] Araceli Silva MA [facility] 4 11:29:33 Date Recorded Body height Provider Name an d Address Organization Details Last Updated DateTime 04/18/2024 161.29 cm Araceli romeo MA [facility] 04/18/2024 10:58:50 Date Recorded Body height Provider Name an d Address Organization Details Last Updated DateTime 04/25/2024 161.29 cm Araceli romeo MA [facility] 04/25/2024 10:27:57 Date Recorded Body height Body mass index (BMI) Body weight Body temperature Provider Name and Address Organization Details Last Updated DateTime 06/21/2024 161.29 cm 25.2 kg/m2 19166.49 g 97.6 [degF] Annemarie Farris MA [facility] 06/21/2024 11:44:21 Date Recorded Heart rate Oxygen saturation Oxygen saturation in Arterial blood by Pulse oximetry Systolic blood pressure Diastolic blood pressure Provider Name and Address Organization Details Last Updated DateTime 5 78 /min 99 % 99 % 102 mm[Hg] 70 mm[Hg] Radha Lawler RN [facility] 5 11:44:59 Social History Question Answer Notes LastModified by Organizat ion Details LastModified Time Tobacco Smoking Status Former Smoker Araceli Silva MA null, [facility] 04/06/2024 11:25:18 Do You Have An Advance Directive? No Information not available 04/06/2024 What Is Your Level Of Alcohol Consumption? None Information not available 04/06/2024 Are You Blind Or Do You Have Difficulty Seeing? No Information not available 04/06/2024 What Is Your Level Of Caffeine Consumption? Heavy Information not available 04/06/2024 Have You Been To An Area Known To Be High Risk For COVID-19? No Information not available 04/06/2024 Are You Currently Employed? Yes Information not available 04/06/2024 Are You Deaf Or Do You Have Serious Difficulty Hearing? No Information not available 04/06/2024 What Type Of Diet Are You Following? REGULAR Information not available 04/06/2024 Do You Or Have You Ever Used E-cigarettes Or Vape? 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 No Information not available 04/06/2024 What Was The Date Of Your Most Recent Tobacco Screening? 06/21/2024 [email or web address] Information not available 06/21/2024 How Many Children Do You Have? 1 Information not available 04/06/2024 What Is Your Current Pack Years? 10-19packyears Information not available 04/06/2024 What Is Your Relationship Status? Single Information not available 04/06/2024 Do You Use Your Seat Belt Or Car Seat Routinely? Yes Information not available 04/06/2024 Do You Have Smoke And Carbon Monoxide Detectors In Your Home? Yes Information not available 04/06/2024 Are You Passively Exposed To Smoke? No Information not available 04/06/2024 How Much Tobacco Do You Smoke? No Information not available 04/06/2024 Do You Use Any Illicit Or Recreational Drugs? No Information not available 04/06/2024 Do You Use Sunscreen Routinely? No Information not available 04/06/2024 How Many Years Have You Smoked Tobacco? 15 Information not available 04/06/2024 Do You Or Have You Ever Used Any Other Forms Of Tobacco Or Nicotine? Yes Information not available 04/06/2024 How Many Years Have You Used E-cigarettes Or Vape? 0 Information not available 04/06/2024 Sex: Female Functional Status Question Answer Note LastModified by Organization D etails LastModified Time Are you able to care for yourself? Yes Information n ot available 04/06/2024 What is your exercise level? None Information not available 04/06/2024 Mental Status None recorded. Family History Relationship Description Onset Age of this Age Resolved Age Notes LastModified by Organization Details LastModified Time Father No current problems or disability [email or web address] Not available 11:18:37 Mother No current problems or disability [email or web address] Not available 11:18:37 Mother Polyp of colon 30 [email or web address] Not available 2023 11:59:59 Maternal Grandmother Metastatic malignant neoplasm to breast [email or web address] Not available 06/2023 11:24:26 Maternal Grandmother Hypothyroidi sm yarauz Not available 2023 11:04:12 Maternal Grandmother Garrett thyroiditis yarauz Not available 06/06 12:16:37 Maternal Aunt Metastatic malignant neoplasm to breast [email or web address] Not available 06/2023 11:24:26 Maternal Grandfather Malignant tumor of prostate yarauz Not available 2023 11:58:57 Medical History Condition Response Anxiety Disorder Y Other Y Gynecological History Statement/Question Response Flow Moderate Date of LMP 2024 Menses Monthly Y Duration of Flow (days) 4 Age at Menarche 13 Current Control Method None Age at First Child 26 LMP Definite Obstetrics History GPAL:G 1 P 1 0 0 1 Type Value Full Term 1 Living 1 Total 1 Immunizations Vaccine Type Date Status Note Provider Nam e and Address Organization Details Recorded Time Tdap 2 completed MATTHIAS Nguyen [facility] 04/06/2024 11:27:25 Influenza, split virus, trivalent, preservative 4 completed MATTHIAS Nguyen [facility] 04/06/2024 12:29:22 Past Encounters Encounter ID Performer Location Encounter Start Date Encounter Closed Date Diagnosis/Indication Diagnosis SNOMED-CT Code Diagnosis ICD10 Code Diagnosis [facility] [id number] [facility] [address] [address] 04/06/2024 11:09:52 04/09/2024 14:33:07 Adult health examination 787199629 Z00.00 28 y/o WF presents for general check up and establish care. Denies any history of chronic problems but does have anxiety symptoms at times with hyperventi lation. Has never had talk therapy. She c/o R proximal joint middle finger mass for 6 months, progressiv carmen getting bigger, painful at times with pressure. Patient agrees to influenza vaccine. Body mass index 20-24 - normal 342076961 Z68.24 BMI 24 Depression screening 171 415254 Z13.31 mildPHQ 2-9 +psychiatr ist/psycho therapist listpatien t to seek/make his own appointmen t [facility] Administra tion of influenza vaccine 06753349 Z23 Hyperlipid emia screening 954441540 Z13.220 Lump on finger 089227400 R22.31 R proximal joint middle finger mass for 6 monthsprog ressively getting biggerpain ful at times with pressure Rosacea, papular type 75 810080 L71.9 cheeks over bridge of noseno treatment in the past [id number] Araceli Silva [facility] [address] [address] 04/18/2024 10:42:30 04/25/2024 10:26:25 Serum thyroid stimulating hormone level outside reference range 092425987 R89.1 [id number] Savannah Olivares [facility] [address] [address] 04/25/2024 10:26:38 05/01/2024 12:58:24 Hypothyroidism 32584660 E03.9 TSH 14. 60 on 04/06/2024 TSH 13.00 on 04/18/2024 will initiate treatment Prediabetes 736453816 R7 3.03 HA1C 5.8 on 04/06/2024 Watch your weight. A healthy weight helps your body use insulin properly. Limit the amount of calories, sweets, and unhealthy fat you eat. Get at least 30 minutes of exercise on most days of the week. Exercise helps control your blood sugar. It also helps you maintain a healthy weight. Walking is a good choice. You also may want to do other activities , such as running, swimming, cycling, or playing tennis or team sports. Do not smoke. Smoking can make prediabete s worse. [id number] Savannah Olivares [facility] [address] [address] 06/21/2024 11:17:26 06/22/2024 12:52:13 Hypothyroidism 78376473 E03.9 TSH 14. 60 on 04/06/2024 TSH 13.00 on 04/18/2024 will continue treatment but will increase Levothyrox ine 25mcg to 50mcg daily Rosacea, papular type 75 757928 L71.9 cheeks over bridge of noseno treatment in the pastusing metrogel sporadical lysome improvemen twill try to use daily as directed Lump on finger 356825914 R22.31 ResolvedR proximal joint middle finger mass for 6 monthsprog ressively getting biggerpain ful at times with pressure Body mass index 20-24 - normal 856530707 Z68.24 BMI 25 Depression screening 171 001010 Z13.31 mildPHQ 2-9 +psychiatr ist/psycho therapist listpatien t to seek/make his own appointmen t [facility] Neck swelling 994919011 R22.1 notices neck enlargemen t on the R Health Concerns Section Related Observation LastModified by Organization Detai ls LastModified Time None Recorded Concern Status LastModified by Organization Details LastModified Time None Recorded Advance Directives Directive N: Payers Encounter Date Sequence Insurance Name Policy Number Policy Hernandez Covered Member ID Hernandez Member ID Guarantor Name 04/06/2024 1 [employer] [id number] Estephanie Gumaro [id number] Estephanie Gumaro 04/18/2024 1 [employer] [id number] Estephanie [place] [id number] Estephanie [place] 04/25/2024 1 [employer] [id number] Estephanie [place] [id number] Estephanie [place] 06/21/2024 1 [employer] [id number] Estephanie [place] [id number] Estephanie Gumaro Notes Date Note Type Note Provider Name and Address Organization Details Recorded Time 04/06/2024 text/html 28 y/o WF presen ts for general check up and establish care. Denies any history of chronic problems but does have anxiety symptoms at times with hyperventilation. Has never had talk therapy. She c/o R proximal joint middle finger mass for 6 months, progressively getting bigger, painful at times with pressure. Patient agrees to influenza vaccine. OSMIN Renteria Attn: [address] [place], [address], [facility] 04/06/2024 17:48:12 04/25/2024 text/html 28 y/o WF on the telephone for abnormal test results. The patient was in for a general check up on 04/06/2024. As part of her comprehensive check up her TSH was checked. It was abnormal. Her TSH was 14.60. This level was rechecked for confirmation and on 04/18/2024 her TSH was 13.00. The patient does voice some hair loss and cold all the time. She is in agreement to start therapy. OSMIN Renteria Attn: [address] [place], [address], [facility] 04/25/2024 16:06:49 06/21/2024 text/html ThyroidReported bypatient.Quality:not changing Severity:mild Duration:started: Onset/Timing:abrupt onset Context:no history of head or neck radiation during childhood; no history of thyroid disease; no history of hypothyroidism; no history of hyperthyroidism; no excess iron exposure; history of thyroid nodules no; family history of thyroid disease yes; history of goiter no;high thyroid levels Modifying Factors:medication Exercisegets exercise Associated Symptoms:no heat intolerance; no weight loss; no weight gain; no double vision; no dry eyes; no hoarseness; no difficulty swallowing; no deepening of the voice; no fast heart rate; no increased blood pressure; no palpitations; no chest pain; no chest tightess or pressure; no diarrhea; no vomiting; no decreased appetite; no loose stools; no irregular menstrual periods; no excessive sweating; no joint pain; no numbness; no tingling of the hands or feet; no tremor; no nervousness; no fatigue; no sleep difficulties; no hair changes;cold intolerance;neck masses;constipation;d ry skin;anxiety;depressi on;skin changes 28 y/o WF presents for TSH check. On initial check, TSH was abnormal. Her TSH was 14.60. This level was rechecked for confirmation and on 04/18/2024 her TSH was 13.00. The patient does voice some hair loss and cold all the time. She has been taking levothyroxine 25mcg daily. She notices improvement of constipation. Still having some hair loss. She is using the metrogel for her rosacea but doesnt do it constantly as she is supposed to. She notices her neck is swelling more on the R. 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 Savannah Olivares, [employer]IC[employer]- Attn: [address] [place], [address], [facility] 06/21/2024 13:42:31 OBGyn Episode Ob Episode Information Episode Created Date Number of Fetuses Patient Bloodtype Patient rh Status Prepregnancy Weight lbs Domestic Partner Domestic Partner Phone Father Name [employer] Installer Status 04/06/20 24 1 CLOSED Fetus Data First Name Last Name Admitted to NICU Weight (g) Sex Living Outcome Pediatric Complications Fetus ID Race Codes Race Delivery Type [id number] Vaginal Omega Calculation Initial Omega Date Initial Exam Date Initial Exam Provider Initial Ultrasound Date Last Menstrual Period Date Ultra Sound Weeks Gestation 0 Eighteen To Twenty Week Omega Update Ultra Sound Date Fundal Height At Umbil Quickening Date Ultra Sound Latest Weeks Gestation Final Omega Confirmed By Final Omega Confirmed Date Final Moega Date Ultra Sound Latest Days Gestation 0 0 Menstrual History Last Menstrual Date Menses Monthly On Bcp Conception Prior Menses Frequency Hcg Plus Date Menarche Onset Age Delivery Information Delivery Date Delivery Type Labor Anesthesia Weeks Gestation Incision Type Labor Labor Length Hrs Delivered By Post Complications Tubal Sterilization Discharge Date Comments 2 Discharge Information Feeding Method Contraceptive Method Maternal HG B and HCT Levels
[2024-08-18 11:54] VITALS: BP 107/61; PULSE 69; RESP 18; TEMP 36.4; O2SAT 100
[2024-08-18 12:06] LABS: EDCOVIDSCREEN Positive (Negative); EDINFLUASCREEN Negative (Negative); EDINFLUBSCREEN Negative (Negative)
--- NOTE | 2024-08-18 12:31 | ED.URI ---
HPI - URI/Sore Throat General Chief Complaint: Upper Respiratory Infection Stated Complaint: test for covid History of Present Illness HPI Narrative: 29-year-old female presents today needing work. Patient with fever on Tuesday 101.5 but since then has not had 1 also with a cough. Daughter tested positive for COVID on Tuesday. She would like a COVID test hoping it will be negative and a work note to return. MD elicited complaint: fever and cough Related Data Home Medications ?Medication ?Instructions ?Recorded ?Confirmed ?Last Taken ?Type levothyroxine 25 mcg tablet mcg 08/18/24 Unknown History Allergies Allergy/AdvReac Type Severity Reaction Status Date / Time No Known Allergies Allergy Verified 08/18/24 11:59 Review of Systems Review of Systems: All systems reviewed & are unremarkable except as noted in HPI and below Eyes: Eyes: Reports as per HPI ENT: Reports as per HPI Cardiovascular: Cardiovascular: Reports as per HPI Respiratory: Respiratory: Reports as per HPI Genitourinary: Genitourinary: Reports as per HPI Musculoskeletal: Musculoskeletal: Reports as per HPI Integumentary/Breasts: Skin/Breast: Reports as per HPI Neurologic: Reports as per HPI Psychiatric: Psychiatric: Reports as per HPI Endocrine: Endocrine: Reports as per HPI Hematologic/Lymphatic: Hematologic/Lymphatic: Reports as per HPI Allergic/Immunologic: Allergic/Immunologic: Reports as per HPI Exam Const: General: cooperative, healthy appearing, comfortable, no acute distress and well developed Orientation/consciousness: patient oriented x3 HENMT: Head: normal to inspection Eyes: General: appearance normal, both eyes and all related structures Resp: Effort & Inspection: normal respiratory effort and able to speak in complete sentences Auscultation: clear to auscultation bilaterally Cardio: Rate: regular rate Rhythm: regular rhythm Heart sounds: S1 normal heart sound present and S2 normal heart sound present Skin: General skin exam: normal color Neuro: General: patient oriented x3 Cognition (Neuro): normal cognition Speech: normal speech Psych: Mental Status: mental status grossly normal Course Course Level of Care: Express Care Visit Vital Signs Vital signs: Vital Signs Temperature 97.6 F 08/18/24 11:54 Pulse Rate 69 08/18/24 11:54 Respiratory Rate 18 08/18/24 11:54 Blood Pressure 107/61 08/18/24 11:54 Pulse Oximetry 100 08/18/24 11:54 Oxygen Delivery Room Air 08/18/24 11:54 Temperature 97.6 F 08/18/24 11:54 Pulse Rate 69 08/18/24 11:54 Respiratory Rate 18 08/18/24 11:54 Blood Pressure 107/61 08/18/24 11:54 Pulse Oximetry 100 08/18/24 11:54 Oxygen Delivery Room Air 08/18/24 11:54 MDM - URI/Sore Throat MDM Narrative Medical decision making narrative: 29-year-old female HPI as noted differentials include but not limited to upper respiratory tract infection, influenza, pharyngitis, viral infection. Patient did have close contact with individuals who had COVID. Influenza was negative but COVID was positive. Patient's last fever was Tuesday. Symptoms have much improved. No interventions needed at this time. Patient should be safe to return to work as she has been fever free for 24 hours without ibuprofen and/or Tylenol. She has been instructed that it would be advised to wear mask for a total of 10 days from the beginning of symptoms. Differential Diagnosis Differential diagnosis: Likely upper respiratory infection, viral infection, influenza and pharyngitis Medical Records Attestation: I reviewed the patient's medical records. Lab Data Attestation: I reviewed the patient's lab results. Labs: Lab Results 08/18/24 Range/Units 12:03 POC Influenza A Ag Negative (Negative) POC Influenza B Ag Negative (Negative) POC SARS CoV-2 Ag Positive (Negative) Discharge Plan Discharge Clinical Impression: COVID Patient Disposition: Home, Self-Care Condition: Stable Instructions: Antibiotic Form, COVID-19 (Coronavirus Disease 2019) (ED) Additional Instructions: You tested positive for COVID today. Your symptoms did start on Tuesday and you stated you had been fever free since . With this information you may go back to work. Ideally would wear a mask for a total of 10 days from when symptoms started. Patient Language: Tanzanian Prescriptions: No Action levothyroxine 25 mcg tablet Follow-up/Referrals: Jenna,DEBRA Ibrahim [Primary Care Provider] - Stand Alone Forms: Work/School Release IP Time of Disposition: 12:37
== END 2024-08-18 12:40 | disposition home or self-care (01) ==
PROVIDERS: Emergency Provider Nurse Practitioner Family; PCP Registered Nurse
DX: U07.1 COVID-19 (principal)
CPT/HCPCS: 87426; 87804; 99212; G0463